=== PATIENT | female | born 1960 | race African-American/Black ===

== ENCOUNTER 2024-03-14 08:57 | Emergency (ER) | payer OTHER ==
[2024-03-14 09:09] VITALS: TEMP 98.6; BMI 28.7
[2024-03-14] MEDS ORDERED: LIDOCAINE 4% PATCH TP ONE (09:31)
[2024-03-14] MEDS ORDERED: ACETAMINOPHEN 500 MG TABLET (FP) ONE (09:31)
[2024-03-14] MEDS: LIDOCAINE 4% PATCH TP ONE (09:43)
[2024-03-14] MEDS: ACETAMINOPHEN 500 MG TABLET (FP) PO ONE (09:43)
[2024-03-14 10:30] VITALS: BP 140/67; PULSE 52; RESP 20
== END 2024-03-14 10:52 | disposition home or self-care (01) ==
LOC: JERFT 08:57
DX: M54.50 Low back pain, unspecified (principal); R03.0 Elevated blood-pressure reading, without diagnosis of hypertension; V49.50XA Passenger injured in collision with unspecified motor vehicles in traffic accident, initial encounter; Y92.410 Unspecified street and highway as the place of occurrence of the external cause
CPT/HCPCS: 72100-TC-FY; 99283-25